=== PATIENT | male | born 1955 | race Caucasian/White ===

== ENCOUNTER → 2021-02-22 | Day surgery (SDC) | payer OTHER, MEDICARE ==
[2021-02-21 15:47] LABS: Basophils % 1.1 % (0-1.3); Hematocrit 39.1 % (39.6-49.0); Lymphocytes % 16.1 % (15.3-44.8); MPV 8.1 fL (7.6-11.3); RBC Red Blood Cell Count 4.35 M/uL (4.33-5.43)
[2021-02-21 16:00] LABS: Potassium 4.5 mmol/L (3.5-5.1)
--- NOTE | 2021-02-21 16:00 | RAD REPORT ---
EXAM DESCRIPTION: RAD - Chest Pa And Lat (2 Views) - 02/21/2021 3:46 pm CLINICAL HISTORY: KIDNEY STONE COMPARISON: None TECHNIQUE: Frontal and lateral views of the chest were obtained. FINDINGS: The lungs are clear. Heart size is normal and central vasculature is within normal limit s. No pleural effusion or pneumothorax seen. Thoracic spine degenerative change present. No bone fi nding. No aortic abnormality. IMPRESSION: No acute cardiopulmonary process.
[2021-02-21 16:02] LABS: Protime INR 1.09
--- NOTE | 2021-02-21 16:03 | RAD REPORT ---
EXAM DESCRIPTION: RAD - Abdomen 1 View (KUB) - 02/21/2021 3:45 pm CLINICAL HISTORY: KIDNEY STONE COMPARISON: Chest Pa And Lat (2 Views) dated 02/21/2021 FINDINGS: Bowel gas pattern is non-specific. The prominent colon and small bowel pattern obscures t he kidneys and renal calculi cannot be evaluated. No proximal ureter calculi seen. Small 4 mm hyperde nsity left lower pelvis is potentially a distal left ureteral calculus. History indicates kidney stone diagnosis February 18. No imaging at this facility for that date. No inf ormation is available as to which side the patient has pain symptoms. No significant bony findings IMPRESSION: Kidneys are too obscured by bowel to allow evaluation of renal calculi or proximal urete r calculi. A small 4 mm hyperdense in the left pelvis is potentially distal left ureteral calculus.
[~2021-02-22] MED LIST: CODEINE 30MG/APAP 300MG TAB PO PRN; FENTANYL CITR 100 MCG/2 ML ONE; LIDOCAINE 1% MPF 5 ML VIAL ONE; MIDAZOLAM HCL 2 MG/2 ML INJ ONE; Mastisol Adhesive Liq ONE; ONDANSETRON 4 MG/2 ML VIAL ONE; PHENAZOPYRIDINE 100MG TAB PO ONE; Ringers Lactate 1,000 ML IV ONE; propofoL 200 MG/20 ML VIAL IV ONE
--- NOTE | 2021-02-22 12:15 | RAD REPORT ---
EXAM DESCRIPTION: RAD - Urography Retrograde - 02/22/2021 12:09 pm FINDINGS: Five fluoroscopic KUB images were obtained during left ureteral retrograde assessment. No suspicious or unexpected findings. Fluoro time was 9 seconds.
--- NOTE | 2021-02-22 12:38 | EKG ---
Test Date: 2021-02-22 Test Time: 07:22:25 Stock Broker: SUDHIR MEASUREMENT RESULTS: Intervals: Rate: 50 RI: 154 QRSD: 106 QT: 480 QTc: 437 Penitas: P: 54 RI: 154 QRS: 24 T: 29 INTERPRETIVE STATEMENTS: Sinus bradycardia Otherwise normal ECG No previous ECG available for comparison Electronically Signed On 02-22-21 12:37:31 CDT by Chacho Tobias
[2021-02-22 13:36] VITALS: BP 145/74; TEMP 97.2; O2SAT 100
--- NOTE | 2021-02-22 14:01 | OP ---
Date of Procedure: 02/22/2021 Surgeon: EDELMIRA GENTILE Preoperative Diagnoses: 1.Left ureterolithiasis. 2.Complicated urinary tract infection/pyelonephritis. Postoperative Diagnoses: 1.Left ureterolithiasis. 2.Complicated urinary tract infection/pyelonephritis. Principle Procedures: 1.Cystoscopy. 2.Left retrograde pyelography. 3.Left ureteral stent placement. Indication For Procedure: Mr. Collado presented to the Urology Clinic having been seen in the emergen cy department at [facility] with an obstructing 3.8 mm ureteral calculus. Unfortunately , when he presented to the Urology Clinic he had a fever to 101.4 indicative of potential for infecti on. As a result, he was started on ciprofloxacin and a urine culture was sent, and he was scheduled for definitive ureteral stent placement to relieve the infections burden. Procedure In Detail: The patient was consented in the preoperative holding area before being transfe rred to operative suite where general anesthesia was induced. He had already taken his ciprofloxacin , so no additional antimicrobial prophylaxis was provided. Pneumoboots were provided for DVT prophyl axis. He was placed in the lithotomy position, padded and secured to the table appropriately. His g enitalia were prepped using Hibiclens and draped in standard fashion. The case was begun using a 22- Congolese rigid cystoscope to traverse the urethra and into the bladder with ease. The bladder was surv eyed, and no mucosal lesions, foreign bodies or stones were noted throughout. The left ureteral orif ice was orthotopic in location and cannulated using a 5-Congolese ureteral access catheter and the tip o f a Sensor wire to guide the entry. Then, using a 70:30 mixture of Omnipaque and saline, a retrograd e pyelogram was performed. Left retrograde pyelography: Using a 70:30 mixture of Omnipaque and saline, the contrast was injecte d via the lumen of the 5-Congolese ureteral access catheter and did progress in an obstructed fashion in to the mid proximal ureter before there was delayed injury into the renal calices without filling the renal pelvis. The obstruction ended at the point of catheter placement within the UVJ indicating th e stone had progressed to nearly 1-2 cm of being expelled. As a result, I passed a Sensor wire via t he 5-Congolese ureteral access catheter into the upper pole of the kidney and then passed a 6-Congolese by 26 cm double-J ureteral stent into the kidney. A coil was observed fluoroscopically in the upper abhay e and 1 cystoscopically was formed in the bladder. The patient was then taken out of the lithotomy p osition after his bladder was decompressed. He was then awakened from general anesthesia, transferre d to a stretcher and then transferred to the recovery room in good condition. Complications: None. Discharge Disposition: He will continue with ciprofloxacin antimicrobial therapy and we will follow up the urine culture results. As long as he is afebrile and otherwise feeling okay, he will be disch arged and we will plan definitive management within the next 30 days if possible. This will be a lef t-sided ureteroscopy with laser lithotripsy and stent exchange. CHRISTOPHER/BLAINE Voice ID: [id number] Report ID: [id number]
== END | disposition home or self-care (01) ==
LOC: OR 08:26
PROVIDERS: ATTEND Urology
PROC: 0T778DZ Dilation of Left Ureter with Intraluminal Device, Via Natural or Artificial Opening Endoscopic (ICD-10-PCS; principal; 2021-02-22 10:00)
DX: N20.2 Calculus of kidney with calculus of ureter (principal); N39.0 Urinary tract infection, site not specified; I10 Essential (primary) hypertension; E78.00 Pure hypercholesterolemia, unspecified
CPT/HCPCS: 93005; 85025; 80048; 36415; 85610; 74018; 71046; 74420; 52332; J2704; J2250; J3010; J7120; J2405 ×3

== ENCOUNTER 2021-03-29 07:56 | Day surgery (SDC) | payer OTHER, MEDICARE ==
[2021-03-29] MEDS ORDERED: Ringers Lactate 1,000 ML IV ONE (08:49)
[2021-03-29] MEDS ORDERED: Gentamicin Inj 240 MG in NA CHLORIDE 0.9% 100 ML IV ONE (09:00)
[2021-03-29] MEDS ORDERED: CLINDAMYCIN INJ 600 MG in NA CHLORIDE 0.9% 50 ML IV ONE (09:00)
[2021-03-29] MEDS ORDERED: propofoL 200 MG/20 ML VIAL IV ONE (11:00)
[2021-03-29] MEDS ORDERED: FENTANYL CITR 100 MCG/2 ML ONE (11:00)
[2021-03-29] MEDS ORDERED: MIDAZOLAM HCL 2 MG/2 ML INJ ONE (11:00)
[2021-03-29] MEDS ORDERED: KETOROLAC 30 MG/ML INJ ONE (11:01)
[2021-03-29] MEDS ORDERED: dexAMETHasone 10 MG/ML VIAL ONE (11:01)
[2021-03-29] MEDS ORDERED: LIDOCAINE 1% MPF 5 ML VIAL ONE (11:01)
[2021-03-29] MEDS ORDERED: ONDANSETRON 4 MG/2 ML VIAL ONE (11:04)
[2021-03-29] MEDS ORDERED: PHENAZOPYRIDINE 100MG TAB PO ONE ×2 (11:22→13:25)
[2021-03-29] MEDS ORDERED: CODEINE 30MG/APAP 300MG TAB PO PRN (11:22)
[2021-03-29] MEDS ORDERED: ROCURONIUM 50 MG/5 ML VIAL IV ONE (12:10)
--- NOTE | 2021-03-29 12:15 | RAD REPORT ---
EXAM DESCRIPTION: RAD - Urography Retrograde - 03/29/2021 12:09 pm CLINICAL HISTORY: ICD N 20.0 FINDINGS: Two fluoroscopic spot images obtained. Fluoroscopy time 0.05 minutes Left ureter was cannulated and a wire advanced. Examination was performed by Dr Guzman. Please refer to his report for additional findings
[2021-03-29 12:34] VITALS: O2SAT 99
[2021-03-29] MEDS ORDERED: CODEINE 30MG/APAP 300MG TAB ONE (13:25)
[2021-03-29 13:37] VITALS: BP 124/74; TEMP 97
--- NOTE | 2021-03-29 16:47 | OP ---
Date of Procedure: 03/29/2021 Surgeon: EDELMIRA GENTILE Preoperative Diagnoses: 1.Left ureterolithiasis. 2.Right nephrolithiasis. Postoperative Diagnoses: 1.Left ureterolithiasis. 2.Right nephrolithiasis. Principle Procedures: 1.Cystoscopy. 2.Left ureteroscopy with stone basketing. 3.Left ureteral stent extraction. Findings: A 4 mm distal ureteral calculus. Indication For Procedure: Mr. Collado presented after an emergency department visit febrile associate d with the presence of a left distal ureteral calculus. He initially underwent cystoscopy and left u reteral stent placement until the infection resolved, and he presents today for definitive management of the stone. Procedure In Detail: The patient was consented in the preoperative holding area before being transfe rred to operative suite where general anesthesia was induced. He was given clindamycin and gentamici n 2.2-3 mg/kg IV antimicrobial prophylaxis. Pneumo boots were provided for DVT prophylaxis. He was placed in the lithotomy position, padded and secured to the table appropriately. The case was begun using a 22-Filipino rigid cystoscope to traverse the urethra and into the bladder with ease. The urete ral stent was noted to emanate from the left ureteral orifice and was grasped using an alligator gras per and delivered to the meatus with ease. Fluoroscopically, the tip of the stent was still in the m id distal ureter, and a Sensor wire was passed up the stent and did coil within the putative upper po le of the kidney. Then, using semi-rigid ureteroscopy, I was able to pass the scope into the bladder and visualized the ureteral orifice navigating my way into the ureteral orifice alongside the wire u ntil the calculus was observed within approximately 2 or 3 cm into the ureteral orifice. Because the calculus was sufficiently small size and the ureter was dilated from the stent, I was able to employ a 2.2-Filipino 0 tip Nitinol basket to grasp the stone and delivered via the ureteral orifice with eas e. The stone was sent for chemical analysis. I removed the wire and decompressed his bladder, and t he case was concluded. Complications: None. Discharge Disposition: The patient should follow up in the Urology Clinic electively for metabolic s tone profile assessment ordering to be done. Alternatively, we can simply order two 24- hour urine s tudies with [facility] and have the patient do it no sooner than 1 month from the date of surgery. Fo llowing up with me about 1 month after that. CHRISTOPHER/BLAINE Voice ID: [id number] Report ID: [id number]
== END 2021-03-29 13:20 | disposition home or self-care (01) ==
LOC: PRE 07:56 → DS 13:20
PROVIDERS: ATTEND Urology
PROC: 0TP98DZ Removal of Intraluminal Device from Ureter, Via Natural or Artificial Opening Endoscopic (ICD-10-PCS; principal; 2021-03-29 10:00)
DX: N20.1 Calculus of ureter (principal); N20.0 Calculus of kidney; Z20.822 Contact with and (suspected) exposure to COVID-19
CPT/HCPCS: 87088; 87086; 88300; 82360; 74420; 52310; U0003; J2704; J1580; J2250; J3010; J1100; J7120; J2405

== ENCOUNTER → 2024-05-13 | Day surgery (SDC) | payer OTHER, MEDICARE ==
[2024-05-06 09:12] LABS: PT Prothrombin Time 10.8 SECONDS (9.4-12.5); Protime INR 0.96
[2024-05-06 09:13] LABS: Absolute Basophils 0.1 K/uL (0-0.5); Absolute Eosinophils 0.7 K/uL (0-0.5); Absolute Lymphocytes (CBC) 1.3 K/uL (0.7-4.9); Absolute Monocytes 0.5 K/uL (0.1-1.3); Absolute Neutrophil 6.2 K/uL (1.8-8.0); Basophils % 1.4 % (0-1.3); Eosinophils % 8.3 % (0-4.4); Hematocrit 41.4 % (39.6-49.0); Hemoglobin 13.6 g/dL (13.6-17.9); Lymphocytes % 15.1 % (15.3-44.8); MCH 29.9 pg (27.0-35.0); MCHC 32.9 g/dL (32.0-36.0); MPV 8.4 fL (7.6-11.3); Monocytes % 5.4 % (3.3-12.3); Neutrophils % 69.8 % (41.7-73.7); Platelets 297 thou/uL (152-406); RBC Red Blood Cell Count 4.55 M/uL (4.33-5.43); Red Cell Distribution Width 13.3 % (12.1-15.2)
[2024-05-06 09:25] LABS: Anion Gap 7.8 mEq/L (5.0-15.0); Potassium 3.8 mEq/L (3.5-5.1)
--- NOTE | 2024-05-06 09:26 | RAD REPORT ---
Procedure: Chest Pa And Lat (2 Views) History: Prostate cancer. Preop for genitourinary surgery. Comparison: 2020 Findings: The lungs appear clear of acute infiltrate. No significant pleural effusion noted. The heart is normal size. IMPRESSION: No acute abnormality is displayed.
--- NOTE | 2024-05-06 12:25 | EKG ---
Test Date: 2024-05-06 Test Time: 08:37:12 Diamond Mounter: MARINA MEASUREMENT RESULTS: Intervals: Rate: 45 TX: 160 QRSD: 108 QT: 514 QTc: 444 Bandana: P: 76 TX: 160 QRS: -9 T: 72 INTERPRETIVE STATEMENTS: Marked sinus bradycardia Nonspecific ST and T wave abnormality Abnormal ECG Compared to ECG 02/22/2021 07:22:25 ST (T wave) deviation now present Electronically Signed On 05-06-24 12:24:23 CDT by Samuel Matthews
[~2024-05-13] MED LIST changes: -CODEINE 30MG/APAP 300MG TAB PO PRN; +GLYCOPYRROLATE 0.2 MG/ML SYR ONE; -LIDOCAINE 1% MPF 5 ML VIAL ONE; -Mastisol Adhesive Liq ONE; -PHENAZOPYRIDINE 100MG TAB PO ONE; +POTASSIUM CL 40 MEQ in NA CHLORIDE 0.9% 500 ML IV SCH; -Ringers Lactate 1,000 ML IV ONE
[2024-05-13] MEDS: Ringers Lactate 1,000 ML IV ONE (08:30)
[2024-05-13 10:48] LABS: Anion Gap 8.2 mEq/L (5.0-15.0); Potassium 3.2 mEq/L (3.5-5.1)
--- NOTE | 2024-05-13 11:34 | P.PN ---
Date of Service: 05/13/24 69-year-old gentleman with history of nephroureterolithiasis recurrent presents for preoperative periprocedure evaluation for SpaceOAR and fiducials with a 1 day history of new right upper mid back/flank pain. He suffered a fall on Sunday, which she thinks may be contributing to this pain. It was 8-9 out of 10 in intensity but did not radiate. He had no associated fever, chills, nausea or vomiting. Examination: Patient well-appearing and in no acute distress No dyspnea or sign of respiratory distress Pulse 2+ radial and regular Abdomen soft, nontender, nondistended CVA tenderness noted on the right without muscular tenderness to moderate palpation in the bilateral flank region. Assessment and recommendation: History of recurrent nephroureterolithiasis with new right flank pain and right CVA tenderness. -Suspect possible ureterolithiasis causing obstruction. -Given the need for operative management and the desire to avoid confusion regarding possible pain and nausea and vomiting associated with stone passage events, I recommended delay in his surgery and instead undergo the following evaluation to rule out obstructive ureterolithiasis: -Stat serum BMP -CT stone protocol abdomen and pelvis without contrast Addendum 11:30 AM: CT scan reviewed and no sign of hydronephrosis or obstructive ureterolithiasis. No nephrolithiasis noted. Prostatic urethral calcifications noted. BMP with normal renal function but mild hypokalemia with potassium of 3.2. Plan: KCl 40 mEq IV given intraoperatively and continued postoperatively Continue with plan for surgical intervention and SpaceOAR gel insertion and fiducial markers placement.
--- NOTE | 2024-05-13 11:44 | RAD REPORT ---
EXAMINATION: CT ABDOMEN AND PELVIS WITHOUT CONTRAST CLINICAL INDICATION: Abdominal pain TECHNIQUE: CT abdomen and pelvis was performed, as per department protocol. IV contrast and oral was not administered.Axial, sagittal and coronal reconstructions were obtained. One or more of the following dose reduction techniques were used: Automated exposure control, adjustment of the mA and/o r kV according to the patient size, and/or iterative reconstruction. Unless otherwise specified, incidental findings do not require dedicated imaging follow-up. [id number]. COMPARISON: December 2023 FINDINGS: The lack of intravenous and contrast limits the sensitivity of this exam for evaluation of solid visc eral organs, vascular structures, and bowel. Small bilateral renal calculi. No hydronephrosis. 2.6 cm left renal cyst. A ureteral calculus is not seen. No bladder calculus. Liver, spleen and adrenals grossly normal. 1.9 cm low-density lesion pancreatic head. Calcifications prostate gland. No significant change in the mostly sclerotic bony lesions since the prior exam. No change in the com pression deformity T12 vertebral body No evidence of diverticulitis. 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 MRI of the pancreas recommended for further evaluation
[2024-05-13] MEDS: CEFAZOLIN SODIUM 2 GM/VIAL ONE (12:00)
[2024-05-13 12:46] VITALS: O2SAT 100
--- NOTE | 2024-05-13 13:05 | P.OP ---
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 After counseling, he elected to proceed with radiation therapy. He has been started on androgen deprivation therapy, and SpaceOAR gel and fiducial markers was requested by the radiation oncologist. Procedure note: The patient was consented in the preoperative holding area before being transferred to the operative suite where general anesthesia was induced. He was given Ancef 2 g IV antimicrobial prophylaxis, and pneumoboots were provided for DVT prophylaxis. He was placed on the high lithotomy position, padded and secured to the table appropriately. The transrectal ultrasound probe was placed via his anus into his rectum with ease, and the prostate was visualized in axial and sagittal dimensions. The hands free stepper device was then used to hold the ultrasound probe in place, and I ensured visualization from the perineal region all the way to the seminal vesicles and sagittal section. His genitalia was elevated out of the perineal region using an Ioban drape, and the perineum was prepped with Betadine and the ultrasound probe was draped with sterile blue towels. I began the procedure by targeting the patient's left anterolateral surface of the prostate beyond where calcifications in the prostate were visible, and I inserted a single fiducial marker through the perineum and watched it go through the urogenital diaphragm entering the space of Retzius and ultimately implanted the fiducial marker in the anterior zone of the prostate laterally on the left. Once this was placed successfully, I then angled the ultrasound probe toward the right lateral beyond the point where calcifications in the prostatic urethra were again visible, and I placed a second fiducial marker through the perineum into the space of Retzius and into the anterolateral aspect of the prostate on the right successfully. I then utilized the SpaceOAR insertion needle and a syringe of saline which was primed to remove any air. I inserted the SpaceOAR needle via the midline and navigated through the perineum watching it go over the rectal hump and entering the white line which was the prerectal fat plane as identified ultrasonographically. I then navigated the needle carefully through the prerectal fat plane until I reached the mid base region of the prostate. I then switched axial visualization and ensured the needle was centered in the midline, and once confirmed, I then aspirated and got no blood or succus before injecting a brief bolus of saline. The saline did hydrodissect appropriately in the prerectal fat plane, but was falling slightly more to the patient's left. I thus will be adjusted within that fat plane in order to target more for the hydrodissection to occur in the midline and also going to the right side, and there I was able to inject a slight bolus of saline and hydrodissect appropriately in the midline going across symmetrically to the right and left accordingly. I then switched the saline syringe for the SpaceOAR component syringe and connected it to the needle before injecting the components under ultrasound visualization and observing it nicely separate the prostate from the rectum. It did appear that while there was good separation in the midline, a significant portion of the gel did fall off to the patient's left side. I then removed the SpaceOAR needle and surveyed the space created. Gel can be seen extending across the midline into the right [place] prostate region, but the lateral 1 cm or so of the prostate did not have Paulina it from the rectum, though a nice space did still exist. The majority of the gel was indeed on the patient's left side where a beautiful space was created between the prostate and the rectum. As a result, the patient was taken out of the lithotomy position, awakened from general anesthesia, transferred to a stretcher, and then transferred to the recovery room in good condition. Complications: None Discharge disposition: He may begin simulation with the radiation oncologist who will let me know if he finds the space created adequate. Subsequent follow-up should be established with me usually 3 to 6 months after the completion of radiation treatment unless he has significant issues of urologic nature that arise before then.
[2024-05-13] MEDS: CODEINE 30MG/APAP 300MG TAB ONE (13:26)
[2024-05-13] MEDS: POTASSIUM CL SA 10 MEQ TAB PO SCH (13:27)
[2024-05-13 14:10] VITALS: TEMP 97.3
[2024-05-13 14:14] VITALS: BP 140/70
== END | disposition home or self-care (01) ==
LOC: OR 08:06
PROVIDERS: ATTEND Urology
PROC: 0VH43YZ Insertion of Other Device into Prostate and Seminal Vesicles, Percutaneous Approach (ICD-10-PCS; principal; 2024-05-13 09:30)
DX: C61 Malignant neoplasm of prostate (principal); I10 Essential (primary) hypertension; E78.00 Pure hypercholesterolemia, unspecified; E29.1 Testicular hypofunction
CPT/HCPCS: 93005; 87088; 85025; 87086; 80048 ×2; 36415 ×2; 85610; 74176; 71046; 55874; J2704; J2250; J3010; J2405; J7120; C1889